=== PATIENT | male | born 1995 | race Caucasian/White ===

== ENCOUNTER 2018-03-10 14:40 | Emergency (ER) | payer BC ==
[2018-03-10 14:45] VITALS: BP 142/87; PULSE 71; RESP 18; TEMP 98.6
[2018-03-10] MEDS ORDERED: ONDANSETRON ODT 4 MG TAB PO STA (15:17)
[2018-03-10] MEDS ORDERED: LORazepam 1 MG TAB PO STA (15:18)
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
== END 2018-03-10 15:49 | disposition home or self-care (01) ==
LOC: EC 14:40
DX: F11.23 Opioid dependence with withdrawal (principal); R53.1 Weakness; F17.200 Nicotine dependence, unspecified, uncomplicated; Z79.899 Other long term (current) drug therapy
CPT/HCPCS: 99283